=== PATIENT | male | born 1940 | race Caucasian/White ===

== ENCOUNTER 2016-08-20 23:34 | Emergency (ER) | payer MEDICARE ==
[2016-08-21] MEDS ORDERED: SODIUM CHLORIDE 0.9% 1,000 ML ONE (00:18)
[2016-08-21 00:22] LABS: ABSOLUTE NEUTROPHIL COUNT 3.3 K/mm3 (1.8-7.7); BASO % 0.5 % (0.2-1.0); EOS % 0.5 % (0.9-2.9); HEMATOCRIT 39.8 % (32.0-52.0); HEMOGLOBIN 13.3 gm/l (14.0-18.0); IMM NEUT% 0.2 % (0-1); LYMPH # 1.3 (1.0-4.8); LYMPH % 23.9 % (15-45); MEAN CELL VOLUME 94.1 fl (80.0-94.0); MEAN CORPUSCULAR HEMOGLOBIN 31.4 pg (27.0-31.0); MEAN CORPUSCULAR HGB CONC 33.4 g/dl (33.0-37.0); MEAN PLATELET VOLUME 11.4 fl (7.4-10.4); MONO # 0.8 (0.0-0.8); MONO % 14.3 % (4-12); NEUT % 60.6 % (43-75); PLATELET COUNT 139 K/mm3 (130-400); RED CELL DISTRIBUTION WIDTH 12.8 % (11.5-14.5)
[2016-08-21 00:45] LABS: ALB/GLOB RATIO 1.2 (>1.0); ALBUMIN 3.4 gm/dL (3.5-5.7); CALCIUM 8.7 mg/dL (8.6-10.3)
[2016-08-21 00:54] LABS: INR 1.38; PROTHROMBIN TIME 14.7 SECONDS (9.3-11.4)
--- NOTE | 2016-08-21 08:30 | RAD ---
CHEST 2 VIEWS HISTORY: Cough and syncope. Frontal and lateral chest radiographs dated 08/21/2016. COMPARISON: 12/07/2015. FINDINGS: LUNG VOLUMES: Hyperinflation. FOCAL AIRSPACE OPACITY: No gross airspace consolidation. Minor bandlike density at the left lung base. PLEURAL EFFUSION: None. CARDIOMEDIASTINAL SILHOUETTE: Tortuous aorta. Resolution of prior vascular congestion. PNEUMOTHORAX: None identified. 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 UPPER ABDOMEN: Status post cholecystectomy. IMPRESSION: 1. Linear density at the left lung base, scarring versus atelectasis favored. 2. Hyperinflation suggestive of obstructive pulmonary disease. 3. Redemonstration of an ill-defined sclerotic density of the right proximal humerus measuring 11 mm in size; while this may simply reflect a chondroid lesion, recommend follow-up if there is associated pain.
== END 2016-08-21 03:47 | disposition home or self-care (01) ==
LOC: ED 23:34
DX: E86.0 Dehydration (principal); R55 Syncope and collapse; B34.9 Viral infection, unspecified; I10 Essential (primary) hypertension; Z86.73 Personal history of transient ischemic attack (TIA), and cerebral infarction without residual deficits; Z79.01 Long term (current) use of anticoagulants
CPT/HCPCS: 85379; 85025; 80053; 85610; 84484; 71020; 99284; 96360; 99283; J7030